=== PATIENT | female | born 1985 | race Hispanic/Latino ===

== ENCOUNTER 2022-06-19 15:16 | Emergency (ER) | payer SELFPAY | END 2022-06-19 16:48 | disposition short-term general hospital (02) | LOC: ERS 15:16 | DX: O62.4 Hypertonic, incoordinate, and prolonged uterine contractions (principal); Z3A.32 32 weeks gestation of pregnancy | CPT/HCPCS: 99284 ==

== ENCOUNTER 2022-07-30 20:52 | Emergency (ER) | payer MEDICAID, SELFPAY | END 2022-07-30 21:47 | disposition short-term general hospital (02) | LOC: ERS 20:52 | DX: O75.89 Other specified complications of labor and delivery (principal); Z3A.39 39 weeks gestation of pregnancy | CPT/HCPCS: 99284 ==